=== PATIENT | male | born 1970 | race Two or more races ===

== ENCOUNTER 2016-10-26 16:20 | Emergency (ER) | payer OTHER ==
[~2016-10-26] VITALS: Ht 175.3 cm; Wt 90.7 kg
[2016-10-26] MEDS ORDERED: IV NS 0.9% 1,000 ML ONE (16:50)
[2016-10-26] MEDS ORDERED: IV SET PRIMARY PUMP SET 1 EA INFUS.SET MC ONE (16:50)
[2016-10-26] MEDS ORDERED: METOCLOPRAMIDE HCL 10 MG/2 ML VIAL ONE (16:50)
[2016-10-26] MEDS ORDERED: diphenhydrAMINE HCL 25 MG in IV D5W 50 ML IV PRN (17:00)
[2016-10-26] MEDS ORDERED: METOCLOPRAMIDE HCL 10 MG/2 ML VIAL IV ONE (17:00)
[2016-10-26] MEDS ORDERED: IV NS 0.9% 1,000 ML BAG IV ONE (17:00)
[2016-10-26] MEDS ORDERED: diphenhydrAMINE HCL 50 MG/ML VIAL ONE (17:14)
[2016-10-26] MEDS ORDERED: diphenhydrAMINE HCL 50 MG/ML VIAL IV ONE (17:30)
[2016-10-26 18:44] VITALS: BP 133/75
== END 2016-10-26 18:44 | disposition home or self-care (01) ==
LOC: ER 16:24
DX: G43.909 Migraine, unspecified, not intractable, without status migrainosus (principal); E78.00 Pure hypercholesterolemia, unspecified; R73.03 Prediabetes; Z91.018 Allergy to other foods
CPT/HCPCS: 96361; 96374; 96375; 99284; A4606; J1200; J2765; J7030; Z7610